=== PATIENT | female | born 1950 | race Caucasian/White ===

== ENCOUNTER → 2023-10-03 07:46 | Outpatient (REF) | payer MEDICARE, SELFPAY ==
[2023-10-03 08:30] LABS: % Basophils 0.4 % (0-2); % Eosinophils 2.3 % (0-6); % Immature Granulocytes 0.4 % (0-0.5); % Lymphocytes 29.2 % (20.5-51.1); % Monocytes 6.3 % (1.7-9.3); % Neutrophils 61.4 % (42.2-75.2); Absolute Eosinophils 0.2 10^3/uL (0-0.7); Absolute Lymphocytes 2.1 10^3/uL (1.2-3.4); Absolute Monocytes 0.5 10^3/uL (0.1-0.6); Absolute Neutrophils 4.5 10^3/uL (1.4-6.5); Hematocrit 36.9 % (37.0-47.0); Hemoglobin 12.5 g/dL (12.0-16.0); Mean Corp Hgb Conc. 33.9 g/dL (33.0-37.0); Mean Corpuscular Volume 97.4 fL (81.0-99.0); Mean Platelet Volume 9.3 fL (7.4-10.4); Nucleated Red Blood Cells % 0 %; Platelet Count 289 10^3/uL (130-400); Red Blood Cell Count 3.79 10^6/uL (4.20-5.40); Red Cell Dist. Width 12.3 % (11.5-14.5); White Blood Cell Count 7.3 10^3/uL (4.8-10.8)
[2023-10-03 08:44] LABS: ALT (SGPT) 20 U/L (0-35); AST (SGOT) 22 U/L (14-36); Albumin 4.3 g/dl (3.5-5.0); Alkaline Phosphatase 130 U/L (38-126); Blood Urea Nitrogen 22 mg/dl (7-17); Calcium 9.6 mg/dl (8.4-10.2); Carbon Dioxide 31 mmol/L (22-30); Chloride 100 mmol/L (98-107); Glucose 104 mg/dl (70-99); HDL Cholesterol 76 mg/dl; LDL Cholesterol, Calculated 83 mg/dl; Potassium 4.2 mmol/L (3.5-5.1); Sodium 135 mmol/L (135-145); Total Bilirubin 0.4 mg/dl (0.2-1.3); Total Cholesterol 193 mg/dl (50-199); Total Protein 6.8 g/dl (6.3-8.2); Triglyceride 172 mg/dl (10-149); Very Low Density Lipoprotein 34 mg/dl (0-30); eGFR > 60.00
== END ==
LOC: REG 07:46
PROVIDERS: ATTENDING PHYSICIAN Internal Medicine Interventional Cardiology; FAMILY PHYSICIAN Internal Medicine
DX: E78.2 Mixed hyperlipidemia (principal); I10 Essential (primary) hypertension; I35.0 Nonrheumatic aortic (valve) stenosis; I35.1 Nonrheumatic aortic (valve) insufficiency; R73.09 Other abnormal glucose
CPT/HCPCS: 36415; 80053; 80061; 83036; 85025

== ENCOUNTER 2023-11-07 12:16 | Emergency (ER) | payer MEDICARE, SELFPAY ==
[2023-11-07 12:18] VITALS: BP 153/67
[2023-11-07 12:47] LABS: % Basophils 0.5 % (0-2); % Eosinophils 0.9 % (0-6); % Immature Granulocytes 0.2 % (0-0.5); % Lymphocytes 18.3 % (20.5-51.1); % Monocytes 6.9 % (1.7-9.3); % Neutrophils 73.2 % (42.2-75.2); Absolute Eosinophils 0.1 10^3/uL (0-0.7); Absolute Lymphocytes 1.5 10^3/uL (1.2-3.4); Absolute Monocytes 0.6 10^3/uL (0.1-0.6); Absolute Neutrophils 5.9 10^3/uL (1.4-6.5); Hematocrit 35.3 % (37.0-47.0); Hemoglobin 12.3 g/dL (12.0-16.0); Mean Corp Hgb Conc. 34.8 g/dL (33.0-37.0); Mean Corpuscular Volume 94.6 fL (81.0-99.0); Mean Platelet Volume 9.1 fL (7.4-10.4); Nucleated Red Blood Cells % 0 %; Platelet Count 288 10^3/uL (130-400); Red Blood Cell Count 3.73 10^6/uL (4.20-5.40); Red Cell Dist. Width 12.1 % (11.5-14.5); White Blood Cell Count 8.1 10^3/uL (4.8-10.8)
[2023-11-07 13:08] LABS: ALT (SGPT) 16 U/L (0-35); AST (SGOT) 22 U/L (14-36); Albumin 4.1 g/dl (3.5-5.0); Alkaline Phosphatase 120 U/L (38-126); Blood Urea Nitrogen 22 mg/dl (7-17); Calcium 9.4 mg/dl (8.4-10.2); Carbon Dioxide 31 mmol/L (22-30); Chloride 98 mmol/L (98-107); Glucose 120 mg/dl (70-99); Potassium 4.3 mmol/L (3.5-5.1); Sodium 136 mmol/L (135-145); Total Bilirubin 0.5 mg/dl (0.2-1.3); Total Protein 6.9 g/dl (6.3-8.2); eGFR > 60.00
[2023-11-07 13:17] LABS: NT-proBNP 383 pg/ml
--- NOTE | 2023-11-07 16:23 | ED.GENMED ---
History of Present Illness
<Lillian Borges PA-C - Last Filed: 11/07/23 19:30>
General
Chief Complaint: Breathing Problem
Source: patient
Exam Limitations: none
Time Seen by Provider: 11/07/23 16:22
Nursing documentation reviewed up to this point in time: agreed with
Travel History
Have you had any contact with someone who has COVID-19?: No
Do you have any symptoms of coronavirus? Fever > 100 degrees, chills, cough, shortness of breath, sore throat, loss of taste or smell, muscle aches, or headache?: No
History of Present Illness
History of Present Illness:
73-year-old female with past medical history of moderate aortic stenosis, COPD, hypertension, hyperlipidemia, hypothyroidism presenting emergency department today with shortness of breath and lower extremity swelling for the past 3 weeks. Patient
also admits chest pain with this for the past few weeks as well. Patient saw her cardiology [employer] today for her persistent symptoms and patient states that she was sent to the emergency department for heart failure workup. Patient denies any fevers or
chills, abdominal pain, nausea, vomiting, new coughing, syncopal episodes. Patient denies any dizziness or lightheadedness. Patient denies any lower extremity pain. Patient denies any trauma.
Past History
<Lillian Borges PA-C - Last Filed: 11/07/23 19:30>
Past History
ED Past Medical History: COPD, GERD, HTN and Hypercholesterolemia; Negative IDDM or NIDDM
ED Past Surgical History: Orthopedic; Negative Cardiac
Social History
Tobacco: Former smoker
Alcohol: Occasional
Drug: None
Personal: Other
Living: with roommate
Employment: Employed
Family History
Family History: CAD
Review of Systems
<Lillian Borges PA-C - Last Filed: 11/07/23 19:30>
Review of Systems
All Other Systems: ROS reviewed and negative except as documented in HPI and ROS
Phy Exam
<Lillian Borges PA-C - Last Filed: 11/07/23 19:30>
Physical Exam
Physical Exam:
General: Patient is well appearing and in no acute distress; non-toxic
Skin: Warm and dry, no rashes or lesions
Head: Normocephalic, atraumatic
Eyes: Sclera non-icteric. EOMs intact. PERRLA.
Cardiac: Regular rate, harsh systolic murmur noted
Peripheral Vascular: Mild pitting edema noted at ankles bilaterally. 2+ dorsalis pedis pulses and posterior tibial pulses bilaterally.
Pulm: Normal respiratory effort, no wheezes, rales, rhonchi
Abdomen: No abdominal tenderness
Musculoskeletal: No tenderness palpation of bilateral lower extremities
Neuro: CN II-XII intact, no focal neurologic deficits.
Psychiatric: Appropriate mood and affect.
Scores
<Lillian Borges PA-C - Last Filed: 11/07/23 19:30>
Heart Failure Risk
Heart Failure Risk Score: Yes
History of Stroke or TIA: No
History of intubation for respiratory distress: No
Heart rate on ED arrival >/= 110: No
SaO2 <90% on arrival on room air: No
HR >/=110 during 3min walk test (or too ill to perform test): No
ECG has acute ischemic changes: No
Urea >/=12mmol/L (BUN 33.6mg/dL): No
Serum CO2>/=35mmol/L: No
Troponin I or T elevated to MT Level (0.4mg/dL): No
NT-proBNP >/=5,000ng/L (5,000pg/ml): No
HF Risk Score: 0
Admission Status: LOW RISK 2.8% Consider discharge to home with f/u visit to PCP/Senior Technical Writer
<Long Barr DO - Last Filed: 11/07/23 23:21>
Heart Failure Risk
HF Risk Score: 0
Admission Status: LOW RISK 2.8% Consider discharge to home with f/u visit to PCP/Senior Technical Writer
Course
<Lillian Borges PA-C - Last Filed: 11/07/23 19:30>
Orders/Labs/Results
Orders:
Orders
11/07/23 12:22
Electrocardiogram (*1) Urgent
Reason for Study: Chest Pain
EKG- Treatment ONCE
11/07/23 12:32
Complete Blood Count/With Diff Urgent
Comprehensive Metabolic Panel Urgent
NT-proBNP Urgent
11/07/23 16:38
CR Chest - 2 Views Urgent
Comment:
Reason For Exam: shortness of breath, chest pain
11/07/23 16:56
Troponin I Urgent
Abnormal Lab Results
11/07/23
12:32
RBC 3.73 L 10^6/uL
(4.20-5.40)
Hct 35.3 L %
(37.0-47.0)
MCH 33.0 H pg
(27.0-31.0)
Lymphocytes % 18.3 L %
(20.5-51.1)
Carbon Dioxide 31 H mmol/L
(22-30)
BUN 22 H mg/dl
(7-17)
Glucose 120 H mg/dl
(70-99)
11/07/23 12:32
11/07/23 12:32
Vital Signs
Initial and Last Documented VS:
Initial Vital Signs
Temp Pulse Resp BP Pulse Ox
98.4 F 97 16 153/67 97
11/07/23 12:18 11/07/23 12:18 11/07/23 12:18 11/07/23 12:18 11/07/23 12:18
Last Documented Vital Signs
Temp Pulse Resp BP Pulse Ox
98.4 F 66 10 146/59 99
11/07/23 12:18 11/07/23 18:00 11/07/23 18:00 11/07/23 18:00 11/07/23 18:00
<Long Barr, DO - Last Filed: 11/07/23 23:21>
Orders/Labs/Results
Orders:
Orders
11/07/23 12:22
Electrocardiogram (*1) Urgent
Reason for Study: Chest Pain
EKG- Treatment ONCE
11/07/23 12:32
Complete Blood Count/With Diff Urgent
Comprehensive Metabolic Panel Urgent
NT-proBNP Urgent
11/07/23 16:38
CR Chest - 2 Views Urgent
Comment:
Reason For Exam: shortness of breath, chest pain
11/07/23 16:56
Troponin I Urgent
Abnormal Lab Results
11/07/23
12:32
RBC 3.73 L 10^6/uL
(4.20-5.40)
Hct 35.3 L %
(37.0-47.0)
MCH 33.0 H pg
(27.0-31.0)
Lymphocytes % 18.3 L %
(20.5-51.1)
Carbon Dioxide 31 H mmol/L
(22-30)
BUN 22 H mg/dl
(7-17)
Glucose 120 H mg/dl
(70-99)
11/07/23 12:32
11/07/23 12:32
Vital Signs
Initial and Last Documented VS:
Initial Vital Signs
Temp Pulse Resp BP Pulse Ox
98.4 F 97 16 153/67 97
11/07/23 12:18 11/07/23 12:18 11/07/23 12:18 11/07/23 12:18 11/07/23 12:18
Last Documented Vital Signs
Temp Pulse Resp BP Pulse Ox
98.4 F 66 10 146/59 99
11/07/23 12:18 11/07/23 18:00 11/07/23 18:00 11/07/23 18:00 11/07/23 18:00
<Lillian Borges PA-C - Last Filed: 11/07/23 19:30>
MDM/Problems Addressed
Differential Diagnosis Includes:
Differentials include CHF secondary to aortic stenosis, ACS, pneumothorax, pneumonia, COPD exacerbation
MDM/Problems Addressed:
Shortness of breath, swelling
Chronic conditions affecting care:
Moderate aortic stenosis, COPD, GERD, hypothyroidism
Acute Exacerbation and/or Progression of Chronic Illness:
Moderate aortic stenosis
<Lillian Borges PA-C - Last Filed: 11/07/23 19:30>
*Pulse Oximetry
Patient hypoxic: no
*EKG
Interpreted by ED Provider?: Yes
EKG Intrepretation Date: 11/07/23
Interpretation: abnormal
Comparison EKG: no changes
Heart Rate: 68
Rate: normal
Rhythm: sinus
Enterprise: normal axis
Interval: other (prolonged HI, first degree AV block)
QRS Pattern: normal QRS
Ischemia: no ischemia
*[employer]ed [employer] Router Interpretation
Rate: normal
Interpretation: normal
Heart Rate: 70
Rhythm: sinus
*Critical Care Note
Total Time (30-74mins, 75-104mins- exclusive of procedures): Not Applicable
Data Reviewed
Review of Other/Old Records Reveals: Records (Reviewed ER physician documentation from 12/09/2022) and Radiology Studies (Reviewed previous echo)
Source: patient and records
Prescriptions/Medications Considered But Not Given:
Considered IV Lasix therapy however patient does not appear to be significantly fluid overloaded
<Lillian Borges PA-C - Last Filed: 11/07/23 19:30>
Patient Management
Escalation/DeEscalation of care consider admission/obs:
73-year-old female with past medical history of moderate aortic stenosis, COPD, hypertension, hyperlipidemia, hypothyroidism presenting emergency department today with shortness of breath and lower extremity swelling for the past 3 weeks. Patient
was seen by her cardiology [facility] who sent her here for further workup for possible new onset heart failure. Here in emergency department, she is very well-appearing, her vitals are stable. Her chest x-ray is negative for any pneumonia, pneumothorax,
pleural effusion. Her CBC and CMP are unremarkable. Her broke BNP is 383 and her troponin is nonelevated. No concern for acute heart failure at this time, symptoms likely related to her moderate aortic stenosis, close outpatient follow-up
recommended. Patient stable for discharge.
ED Attending Note
<Lillian Borges PA-C - Last Filed: 11/07/23 19:30>
-
Portions of this chart may have been created with voice recognition software.� Occasional wrong word or��sound alike� substitutions may have occurred due to the inherent limitations of voice recognition software.
<Long Barr DO - Last Filed: 11/07/23 23:21>
ED Attending Note
Patient seen and examined by attending physician: Yes
I performed a history and physical exam of patient and discussed management with resident, I reviewed resident's note and agree with documented findings and plan of care.: Yes
ED Attending Note:
I have reviewed and agree with history and treatment plan by Lillian Borges. My exam revealed 73-year-old female with 4/6 systolic ejection murmur best heard at RSB. Lungs clear. No distress. Ambulates out difficulty. Do not suspect acute CHF.
Stable for discharge and follow-up with primary care. Lasix not indicated at this time.
Discharge Plan
Departure
Patient Disposition: Home (Routine Discharge)
Date of Disposition: 11/07/23
Time of Disposition: 18:34
Patient with high blood pressure during this ER visit?: Yes
Condition: Good
Discharge Problem:
Shortness of breath
Instructions: Shortness of Breath (Dyspnea) (DC), BLOOD PRESSURE
Prescriptions:
No Action
lansoprazole [Prevacid] 15 MG capsule,delayed release(DR/EC)
15 mg PO DAILYPRN PRN (Reason: reflux)
rosuvastatin [Crestor] 20 MG tablet
20 mg PO DAILY
metoprolol succinate 12.5 MG tablet extended release 24 hr
12.5 mg PO DAILY
Amlodipine
1 tab PO BID
Patient Comments:
pt does not know mg
levothyroxine 175 MCG tablet
175 mcg PO DAILY
cholecalciferol (vitamin D3) 2,000 UNITS tablet
2,000 units PO DAILY
Referrals:
Teressa Arechiga CRNP [Family Provider] -
Activity Restrictions/Additional Instructions:
Please follow up with your hospital admitting clerk.
Please return to the emergency department should you experience AN ACUTE WORSENING OF YOUR SYMPTOMS, SYNCOPAL EPISODES, DIZZINESS, LIGHTHEADEDNESS, OR ANY OTHER CONCERNING SIGNS OR SYMPTOMS.
Interventions
Interventions:
*Risk Screen - Suicide Last Done: 11/07/23 12:18
*General Assessment Last Done: 11/07/23 12:18
*Neglect/Abuse Screening Last Done: 11/07/23 12:18
*ED COVID-19 Vaccine History Last Done: 11/07/23 18:56
*Nursing Disposition Last Done: 11/07/23 18:56
ED- Cardiac Assessment Last Done: 11/07/23 17:03
ED- Pulmonary Assessment Last Done: 11/07/23 17:03
Discharge Date and Time
Discharge Date/Time: 11/07/23 18:56
Print Language: PASHTO
[2023-11-07 17:22] VITALS: BP 126/82
[2023-11-07 17:32] LABS: Troponin I < 0.012 ng/ml
[2023-11-07 18:00] VITALS: BP 146/59
== END 2023-11-07 18:56 | disposition home or self-care (01) ==
LOC: EMR 12:16
PROVIDERS: Emergency Medicine; Physician Assistant; EMERGENCY PHYSICIAN Emergency Medicine; FAMILY PHYSICIAN Nurse Practitioner Primary Care
DX: R06.02 Shortness of breath (principal); I10 Essential (primary) hypertension; I35.0 Nonrheumatic aortic (valve) stenosis; J44.9 Chronic obstructive pulmonary disease, unspecified; E78.00 Pure hypercholesterolemia, unspecified; E03.9 Hypothyroidism, unspecified
CPT/HCPCS: 99285; 71046; 80053; 83880; 84484; 85025; 93005

== ENCOUNTER → 2023-12-21 09:18 | Outpatient (REF) | payer MEDICARE, SELFPAY | LOC: RCS 09:18 | PROVIDERS: ATTENDING PHYSICIAN Nurse Practitioner Family | DX: R06.02 Shortness of breath (principal); R60.0 Localized edema; I10 Essential (primary) hypertension; I35.1 Nonrheumatic aortic (valve) insufficiency; R06.09 Other forms of dyspnea; R07.89 Other chest pain | CPT/HCPCS: 93017; 93350 ==

== ENCOUNTER 2023-12-26 06:26 | Day surgery (SDC) | payer MEDICARE, SELFPAY ==
[2023-12-26] VITALS (14 sets, daily range): BP systolic 93–143; BP diastolic 49–114; BMI 29.7
[2023-12-26 07:10] LABS: Hemoglobin 11.8 g/dL (12.0-16.0); Mean Corp Hgb Conc. 35.8 g/dL (33.0-37.0); Mean Corpuscular Hgb 32.9 pg (27.0-31.0); Mean Corpuscular Volume 91.9 fL (81.0-99.0); Mean Platelet Volume 9.3 fL (7.4-10.4); Platelet Count 265 10^3/uL (130-400); Red Blood Cell Count 3.59 10^6/uL (4.20-5.40); Red Cell Dist. Width 11.8 % (11.5-14.5); White Blood Cell Count 8.5 10^3/uL (4.8-10.8)
[2023-12-26 07:31] LABS: Blood Urea Nitrogen 20 mg/dl (7-17); Calcium 9.4 mg/dl (8.4-10.2); Carbon Dioxide 29 mmol/L (22-30); Chloride 100 mmol/L (98-107); Estimated Creatinine Clearance 62 ml/min; Glucose 106 mg/dl (70-99); Potassium 4.2 mmol/L (3.5-5.1); Sodium 136 mmol/L (135-145); eGFR > 60.00
[2023-12-26] MEDS: NSS 1000 IV (08:49)
[2023-12-26] MEDS: NSS 235 ML IV (08:50)
[2023-12-26] MEDS: LOW STRENGTH ASPIRIN 324 MG PO (08:51)
--- NOTE | 2023-12-26 09:25 | ITS.CL.CATH ---
[employer] - Catheterization
Cardiac Catheterization
Procedure Report:
LEFT AND RIGHT HEART CATHETERIZATION
Date of Procedure: December 26, 2023
Referring: Ree Green MD, [facility], [facility]
PROCEDURES:
1. Left heart catheterization, coronary angiogram.
2. Ultrasound-guided access.
3. Right heart catheterization
INDICATION: Patient is a 73-year-old female with past medical history of hypertension, hyperlipidemia, type 2 diabetes mellitus, family history of coronary artery disease, former smoker presenting with 2-month history of progressively worsening
exertional chest pressure and dyspnea on exertion now being referred for left and right heart catheterization to assess invasive hemodynamics and rule out obstructive CAD
ACCESS:
1. Right radial artery, 6 Arabic sheath, under ultrasound guidance.
2. Right brachial vein, 6 Arabic sheath, under ultrasound-guided
HEMODYNAMICS : (mmHg)
RA (m) : 16
RV (s/d,m) : 31/13
PA (s/d, m) : /21
PCWP (m) : 19
PA saturation: 63.5% on room air
AO saturation: 89% on room air
RA saturation: 64.4% on room air
Cardiac Output : 4.11 L/min
Cardiac Index : 2.24 L/min/m-2
Systemic vascular resistance: 1400 dsc^(-5)
Pulmonary vascular resistance: 1.46 kay unit
Heart rate: 57 bpm
AO (s/d) : 110/56
LV (s/d) : 110/8
LVEDP : 19
CORONARY FINDINGS
DOMINANCE: Right
LEFT MAIN: The left main artery is a large-caliber vessel that gives rise to the left anterior descending artery and the left circumflex artery. There is minimal luminal irregularities.
LEFT ANTERIOR DESCENDING: The left anterior descending artery is a large-caliber vessel which gives rise to 2 major diagonal branches as it courses to the anterior interventricular groove towards the apex. There is mild atherosclerotic plaque.
CIRCUMFLEX: The left circumflex artery is a medium to large caliber vessel which gives rise to 2 major obtuse marginal branches which are moderately tortuous. There is mild diffuse atherosclerotic plaque.
RIGHT CORONARY ARTERY: The right coronary artery is a medium to large caliber dominant vessel which gives rise to the right posterior descending artery and the right posterolateral system. There is minimal luminal irregularities.
SEDATION: 53 minutes of procedural sedation was utilized. An independent pediatrician/medical doctor was present to assist with and help manage the patient's level of consciousness and physiologic status.
RADIATION SUMMARY: Fluoro Time (min): 3.9, Dose (mGy): 127.95, DAP (Gy.cm2) : 10.65
Closure Device:
1. Vascular band over right radial artery, 10 cc of air.
2. Manual pressure was held over the right brachial venous access site with successful hemostasis.
CONCLUSIONS
1. No obstructive coronary artery disease.
2. Elevated right and left-sided filling pressures with normal cardiac output.
RECOMMENDATIONS
1. Optimize filling pressures and continue with medical therapy.
2. Aggressive management of cardiovascular risk factors.
3. Wean radial band per protocol.
Ree Green MD, FACC, [facility]
[2023-12-26] MEDS: LASIX 20 MG IV (11:19)
== END 2023-12-26 12:20 | disposition home or self-care (01) ==
LOC: CATH 06:26
PROVIDERS: ATTENDING PHYSICIAN Internal Medicine Interventional Cardiology; FAMILY PHYSICIAN Internal Medicine
DX: R07.89 Other chest pain (principal); R06.09 Other forms of dyspnea; I10 Essential (primary) hypertension; E78.5 Hyperlipidemia, unspecified; E11.9 Type 2 diabetes mellitus without complications; Z82.49 Family history of ischemic heart disease and other diseases of the circulatory system; Z87.891 Personal history of nicotine dependence
CPT/HCPCS: 99152; 99153; 80048; 85027; 93460; C1894; Q9967

== ENCOUNTER → 2024-01-16 10:59 | Outpatient (REF) | payer OTHER, SELFPAY | LOC: RCS 10:59 | PROVIDERS: ATTENDING PHYSICIAN Internal Medicine Interventional Cardiology; FAMILY PHYSICIAN Internal Medicine | DX: I35.0 Nonrheumatic aortic (valve) stenosis (principal); I10 Essential (primary) hypertension | CPT/HCPCS: 93306 ==

== ENCOUNTER → 2024-02-01 09:07 | Outpatient (REF) | payer MEDICARE, SELFPAY | LOC: RAD 09:07 | PROVIDERS: ATTENDING PHYSICIAN Nurse Practitioner Family; FAMILY PHYSICIAN Internal Medicine | DX: R60.0 Localized edema (principal); I73.9 Peripheral vascular disease, unspecified | CPT/HCPCS: 93922; 93925; 93970 ==

== ENCOUNTER → 2024-10-07 08:55 | Outpatient (REF) | payer OTHER, SELFPAY ==
[2024-10-07 10:27] LABS: % Basophils 0.6 % (0-2); % Eosinophils 2.6 % (0-6); % Immature Granulocytes 0.3 % (0-0.5); % Lymphocytes 24.8 % (20.5-51.1); % Monocytes 7.3 % (1.7-9.3); % Neutrophils 64.4 % (42.2-75.2); Absolute Eosinophils 0.2 10^3/uL (0-0.7); Absolute Lymphocytes 1.7 10^3/uL (1.2-3.4); Absolute Monocytes 0.5 10^3/uL (0.1-0.6); Absolute Neutrophils 4.5 10^3/uL (1.4-6.5); Hematocrit 36.2 % (37.0-47.0); Hemoglobin 12.3 g/dL (12.0-16.0); Mean Corpuscular Hgb 33.5 pg (27.0-31.0); Mean Corpuscular Volume 98.6 fL (81.0-99.0); Mean Platelet Volume 9.4 fL (7.4-10.4); Nucleated Red Blood Cells % 0 %; Platelet Count 264 10^3/uL (130-400); Red Blood Cell Count 3.67 10^6/uL (4.20-5.40); Red Cell Dist. Width 12.1 % (11.5-14.5)
[2024-10-07 11:03] LABS: ALT (SGPT) 19 U/L (0-35); AST (SGOT) 18 U/L (14-36); Albumin 4.3 g/dl (3.5-5.0); Alkaline Phosphatase 100 U/L (38-126); Blood Urea Nitrogen 24 mg/dl (7-17); Calcium 9.3 mg/dl (8.4-10.2); Carbon Dioxide 29 mmol/L (22-30); Chloride 105 mmol/L (98-107); Glucose 94 mg/dl (70-99); HDL Cholesterol 70 mg/dl; LDL Cholesterol, Calculated 86 mg/dl; Sodium 143 mmol/L (135-145); Total Bilirubin 0.5 mg/dl (0.2-1.3); Total Cholesterol 175 mg/dl (50-199); Total Protein 6.5 g/dl (6.3-8.2); Triglyceride 95 mg/dl (10-149); Very Low Density Lipoprotein 19 mg/dl (0-30); eGFR > 60.00
[2024-10-07 11:27] LABS: TSH Reflex To Free T4 3.13 uIU/ml (0.47-4.68)
[2024-10-07 12:06] LABS: Glycohemoglobin (HgbA1c) 5.7 % (4.0-5.6)
[2024-10-08 23:27] LABS: Lipoprotein a (Lp a) 120 mg/dL (<=29)
[2024-10-09 01:13] LABS: Apolipoprotein B 86 mg/dL (60-117)
== END ==
LOC: REG 08:55
PROVIDERS: ATTENDING PHYSICIAN Internal Medicine Interventional Cardiology; FAMILY PHYSICIAN Internal Medicine
DX: R07.9 Chest pain, unspecified (principal); I35.0 Nonrheumatic aortic (valve) stenosis; I10 Essential (primary) hypertension; E78.2 Mixed hyperlipidemia; R73.09 Other abnormal glucose
CPT/HCPCS: 36415; 80053; 80061; 82172; 83036; 83695; 84443; 85025

== ENCOUNTER → 2025-01-13 08:10 | Outpatient (REF) | payer OTHER, SELFPAY | LOC: RCS 08:10 | PROVIDERS: ATTENDING PHYSICIAN Internal Medicine Interventional Cardiology; FAMILY PHYSICIAN Internal Medicine | DX: I35.0 Nonrheumatic aortic (valve) stenosis (principal) | CPT/HCPCS: 93306 ==